=== PATIENT | female | born 1970 | race African-American/Black ===

== ENCOUNTER 2017-01-23 10:15 | Emergency (ER) | payer BC ==
[~2017-01-23] VITALS: Ht 160 cm; Wt 63.3 kg
[2017-01-23 10:20] VITALS: BP 133/79
[2017-01-23] MEDS ORDERED: DEXT5TAB27 PO (10:20)
[2017-01-23] MEDS ORDERED: CLON0.5T PO (10:20)
--- NOTE | 2017-01-23 11:05 | RAD ---
Indication pain. AP oblique and lateral views of the right wrist were obtained. No bony abnormality is seen
--- NOTE | 2017-01-23 12:20 | PHYS DOC ---
Past Medical History Past Medical History: Anxiety Past Surgical History: Other Additional Past Surgical Histo: neck surgery, rotator cuff, breast aug, abdominoplasty Additional Information: 5-6 cigarettes daily Alcohol Use: None Drug Use: None Adult General Chief Complaint Chief Complaint: WRIST PAIN HPI HPI Patient is a 46 year old female who presents in the ED with mild right wrist pain that began three days after hitting a metal railing. Patient states the pain is worse when she is flexing and extending the wrist. Patient denies any scaphoid pain or tenderness. Review of Systems Review of Systems Constitutional: Denies fever or chills [] Eyes: Denies change in visual acuity, redness, or eye pain [] Musculoskeletal: Right wrist pain Integument: Denies rash or skin lesions [] Neurologic: Denies headache, focal weakness or sensory changes [] Endocrine: Denies polyuria or polydipsia [] Allergies Allergies Allergies Coded Allergies Type Severity Reaction Last Updated Verified Penicillins Allergy Severe anaphylaxis 01/23/17 Yes diphenhydramine Allergy Severe anaphylaxis 01/23/17 Yes methylprednisolone Adverse Reaction Intermediate vomiting 01/23/17 Yes Physical Exam Physical Exam Constitutional: Well developed, well nourished, no acute distress, non-toxic appearance. [] HENT: Normocephalic, atraumatic, bilateral external ears normal, oropharynx moist, no oral exudates, nose normal. [] Skin: Warm, dry, no erythema, no rash. [] Back: No tenderness, no CVA tenderness. [] Extremities: Right wrist with no obvious deformity. Bruising noted on the right distal ulna. Tenderness on palpation of the right dorsal wrist along the distal ulnar. No scaphoid pain or tenderness on exam. Full range of motion to the wrist. Adequate ulnar medial radial sensation to the right upper extremity. +2 right radial pulse. Cap refill less than 2 seconds the right upper extremity. Neurologic: Alert and oriented X 3, normal motor function, normal sensory function, no focal deficits noted. [] Psychologic: Affect normal, judgement normal, mood normal. [] Current Patient Data Vital Signs Vital Signs Date Time Temp Pulse Resp B/P Pulse Ox O2 Delivery O2 Flow Rate FiO2 01/23/17 10:20 97.5 100 16 100 Room Air 97.5 EKG EKG [] Radiology/Procedures Radiology/Procedures [] Course & Med Decision Making Course & Med Decision Making Pertinent Labs and Imaging studies reviewed. (See chart for details) Patient is in the ED with right wrist contusion after hitting it on a metal railing. Right wrist x-rays interpreted by radiologist are negative for any acute findings. Velcro splint applied to the right wrist by the ED RN, neurovascular exam done by me is normal, cap refill <2 seconds, ice elevation encouraged. Follow-up with open one week. Dragon Disclaimer Dragon Disclaimer This electronic medical record was generated, in whole or in part, using a voice recognition dictation system. Departure Departure Impression: Primary Impression: Contusion of right wrist Disposition: HOME, SELF-CARE Condition: STABLE Referrals: NO PCP (PCP) TYLOR TURNER II, MD Follow-up with the provided orthopedic doctor your own doctor in one week if pain continues Patient Instructions: Contusion Additional Instructions: You were seen for right wrist contusion. Wear the splint as needed. Ice and elevate the extremity. Take Tylenol /Motrin for pain or fever. Problem Qualifiers Primary Impression: Contusion of right wrist Encounter type: initial encounter Qualified Code: S60.211A - Contusion of right wrist, initial encounter LUCA GREGORY WIGS SALESPERSON Jan 23, 2017 12:20
== END 2017-01-23 12:30 | disposition home or self-care (01) ==
LOC: ER 10:15
DX: S60.211A Contusion of right wrist, initial encounter (principal); F41.9 Anxiety disorder, unspecified; F17.210 Nicotine dependence, cigarettes, uncomplicated; Z88.0 Allergy status to penicillin; Z88.8 Allergy status to other drugs, medicaments and biological substances; W22.8XXA Striking against or struck by other objects, initial encounter; Y93.89 Activity, other specified; Y92.89 Other specified places as the place of occurrence of the external cause; Y99.8 Other external cause status
CPT/HCPCS: 29125; 73110; 99284-25